=== PATIENT | female | born 1945 | race Two or more races ===

== ENCOUNTER 2020-01-07 07:28 | Outpatient (CLI) | payer OTHER | END 2020-01-07 09:25 | disposition home or self-care (01) | LOC: NUCLEAR 07:28 | DX: I11.9 Hypertensive heart disease without heart failure (principal); E66.8 Other obesity; F03.90 Unspecified dementia, unspecified severity, without behavioral disturbance, psychotic disturbance, mood disturbance, and anxiety; R06.09 Other forms of dyspnea | CPT/HCPCS: 78452; 93017; A9500; J0153 ==